=== PATIENT | female | born 1980 | race Caucasian/White ===

== ENCOUNTER 2018-05-04 18:27 | Emergency (ER) | payer MEDICAID ==
[~2018-05-04] VITALS: Ht 160 cm; Wt 77.6 kg
[2018-05-04 19:07] VITALS: Ht 160 cm; Wt 77.6 kg
[2018-05-04] MEDS ORDERED: ACETAMINOPHEN 500 MG TAB PO STA (22:07)
--- NOTE | 2018-05-04 22:11 | ERD ---
ER Documentation Chief Complaint Chief Complaint vaginal bleeding x 2 hours, states 5 weeks , pad changed 1x HPI This is a 38-year-old female presents to emerge department with complaints of vaginal bleeding, pelvic pain. Stated that she change 2 pads in the last 24 hours. Stated that she is 5 weeks . LMP: 03/23/2017. GENO: 12/27/2018. A0. Medication: Folic acid, iron, calcium. Denies headache, head injury, loss of consciousness, dizziness, neck pain, neck stiffness, throat pain, difficulty swallowing, difficulty breathing lying flat, shoulder pain, chest pain, back pain, abdominal pain, nausea, vomiting, constipation, diarrhea, urinary symptoms, loss of bowel and bladder control, trauma, injury, falls, difficulty walking due to pain, numbness or tingling sensation, calf pain, recent travel, recent major surgery in the last 3 weeks, calf pain, recent long travel, recent exposure to any illness, recent antibiotic use in the last 3 months, fever, chills, seizures. Past medical history: Surgical history: Social: Denies smoking, use of alcoholic beverages, use of illegal drugs. ROS All systems reviewed and are negative except as per history of present illness. Medications Home Meds Active Scripts Cephalexin* (Keflex*) 500 Mg Capsule, 500 MG PO TID for 7 Days, CAP Prov:ALBA MAGALLANES 05/05/18 Vit No.124/Iron/FA ( Vitamin Tablet) 1 Each Tablet, 1 EACH PO DAILY, #30 TAB Prov:MADANILAALBA TAVERA F 05/05/18 Acetaminophen* (Tylophen*) 500 Mg Capsule, 1 CAP PO Q6H PRN for PAIN AND OR ELEVATED TEMP, #20 CAP Prov:ALBA MAGALLANES F 05/05/18 Allergies Allergies: Coded Allergies: No Known Drug Allergies (Verified Allergy, Unknown, 05/04/18) PMhx/Soc Medical and Surgical Hx: pt denies Medical Hx, pt denies Surgical Hx Hx Alcohol Use: No Hx Substance Use: No Hx Tobacco Use: No Smoking Status: Never smoker Physical Exam Vitals Physical Exam Const: No acute distress Head: Atraumatic Eyes: Normal Conjunctiva ENT: Normal External Ears, Nose and Mouth. Neck: Full range of motion. No meningismus. Resp: Clear to auscultation bilaterally Cardio: Regular rate and rhythm, no murmurs Abd: Soft, non tender, non distended. Normal bowel sounds. Negative Phillips sign. Negative [place] sign (heel jar test). Negative psoas sign. Negative Rov[place] sign. No CVA tenderness. Skin: No petechiae or rashes. Color appears normal for ethnicity. No skin tenting. No signs of severe dehydration. Back: No midline or flank tenderness Ext: No cyanosis, or edema Neur: Awake and alert. No neurological deficit. Psych: Normal Mood and Affect Results 24 hrs Laboratory Tests Test 05/04/18 22:56 05/05/18 00:42 White Blood Count 7.9 10^3/ul Red Blood Count 4.55 10^6/ul Hemoglobin 13.2 g/dl Hematocrit 40.1 % Mean Corpuscular Volume 88.1 fl Mean Corpuscular Hemoglobin 29.0 pg Mean Corpuscular Hemoglobin Concent 32.9 g/dl Red Cell Distribution Width 12.8 % Platelet Count 264 10^3/UL Mean Platelet Volume 9.6 fl Immature Granulocytes % 0.300 % Neutrophils % 56.9 % Lymphocytes % 33.7 % Monocytes % 7.7 % Eosinophils % 1.0 % Basophils % 0.4 % Nucleated Red Blood Cells % 0.0 /100WBC Immature Granulocytes # 0.020 10^3/ul Neutrophils # 4.5 10^3/ul Lymphocytes # 2.7 10^3/ul Monocytes # 0.6 10^3/ul Eosinophils # 0.1 10^3/ul Basophils # 0.0 10^3/ul Nucleated Red Blood Cells # 0.0 10^3/ul Sodium Level 142 mmol/L Potassium Level 4.1 mmol/L Chloride Level 102 mmol/L Carbon Dioxide Level 25 mmol/L Anion Gap 15 Blood Urea Nitrogen 11 mg/dl Creatinine 0.47 mg/dl Est Glomerular Filtrat Rate mL/min > 60 mL/min Glucose Level 89 mg/dl Calcium Level 9.9 mg/dl Total Bilirubin 0.2 mg/dl Direct Bilirubin 0.00 mg/dl Indirect Bilirubin 0.2 mg/dl Aspartate Amino Transf (AST/SGOT) 58 IU/L Alanine Aminotransferase (ALT/SGPT) 69 IU/L Alkaline Phosphatase 102 IU/L Total Protein 9.1 g/dl Albumin 4.7 g/dl Globulin 4.40 g/dl Albumin/Globulin Ratio 1.06 Amylase Level 69 U/L Lipase 84 U/L Beta HCG, Quantitative 11.3 mIU/ml Urine Color YELLOW Urine Clarity SLIGHTLY CLOUDY Urine pH 5.0 Urine Specific [place] 1.021 Urine Ketones NEGATIVE mg/dL Urine Nitrite NEGATIVE mg/dL Urine Bilirubin NEGATIVE mg/dL Urine Urobilinogen NEGATIVE mg/dL Urine Leukocyte Esterase TRACE Angel/ul Urine Microscopic RBC > 182 /HPF Urine Microscopic WBC 35 /HPF Urine Squamous Epithelial Cells FEW /HPF Urine Bacteria FEW /HPF Urine Mucus MODERATE /HPF Urine Hemoglobin 3+ mg/dL Urine Glucose NEGATIVE mg/dL Urine Total Protein 1+ mg/dl Current Medications Medications Dose Sig/Rustam Start Time Status Last (Trade) Ordered Route PRN Stop Time Admin Dose Reason Admin 500 mg ONCE STAT 05/04/18 DC 05/04/18 Acetaminophen PO 22:07 23:03 (Tylenol 05/04/18 22:10 Tab) Procedures/MDM Diagnostic tests: Urinalysis: Reviewed. Culture urine: Sent. HCG quantitative: 11.3. Type and Rh: O Positive. Blood works: Reviewed. OB ultrasound: No evidence of intrauterine . If there is clinical concern for ectopic , close follow-up with serial Beta HCG and possible repeat pelvic ultrasound is recommended. 1.3 cm uterine fibroid. Normal appearance of the ovaries. Treatment: Tylenol p.o. Re-evaluation: Denies vaginal bleeding. Denies back pain, abdominal pain, pelvic pain. No episode of emesis here in the emergency department. No CVA tenderness. No signs of hemorrhaging. Stated that she is comfortable going home. Differential diagnosis I have low suspicion for sepsis, hemorrhaging, ectopic . Final diagnosis: Pelvic pain in . Vaginal bleeding . Prescription: Tylenol. vitamins. Follow-up with OB in the next 24-48 hours. Blood works in the next 24-48 hours. Possible ultrasound the next 24-48 hours. Come back here in the emergency department for any new symptoms or any worsening symptoms. All questions and concerns were answered. Patient and family members verbalized understanding and agreed with plan of care. Hemodynamically stable on discharge. Departure Diagnosis: Primary Impression: Vaginal bleeding in patient at less than 20 weeks gestation Additional Impression: UTI (urinary tract infection) Condition: Stable Additional Instructions: Follow-up with OB in the next 24-48 hours. Blood works in the next 24-48 hours. Possible ultrasound the next 24-48 hours. Come back here in the emergency department for any new symptoms or any worsening symptoms. ALBA MAGALLANES May 04, 2018 22:11
[2018-05-05] MEDS ORDERED: ACET500C5 PO (02:41)
[2018-05-05] MEDS ORDERED: CEPH-443 PO (02:42)
[2018-05-05] MEDS ORDERED: PREN-93 PO (02:42)
[2018-05-05 03:31] VITALS: BP 137/85; PULSE 76; RESP 18
== END 2018-05-05 03:32 | disposition home or self-care (01) ==
LOC: FTE 18:27
DX: O20.9 Hemorrhage in early pregnancy, unspecified (principal); O23.41 Unspecified infection of urinary tract in pregnancy, first trimester; R10.2 Pelvic and perineal pain; Z3A.01 Less than 8 weeks gestation of pregnancy
CPT/HCPCS: 76801; 76817; 80053; 81001; 82150; 83690; 84702; 85025; 86850; 86900; 86901; 87086; Z7502; Z7610